=== PATIENT | male | born 1975 | race African-American/Black ===

== ENCOUNTER 2017-05-28 11:36 | Emergency (ER) | payer SELFPAY ==
[~2017-05-28] VITALS: Ht 172.7 cm; Wt 120.0 kg
[~2017-05-28 11:36] MED LIST: CIPR500T4 PO; DIFL150T PO
[2017-05-28 11:38] VITALS: BP 156/86; PULSE 73; RESP 15; TEMP 98.4; O2SAT 98
--- NOTE | 2017-05-28 11:53 | PD ---
Physical Exam Time Seen by Provider: 11:52 Narrative 42 y/o male with a rash on the L foot for one week. Vital signs reviewed. Seen at triage desk. Awaiting bed placement. Data Data Last Documented VS Vital Signs Date Time Temp Pulse Resp B/P Pulse Ox O2 Delivery O2 Flow Rate FiO2 05/28/17 11:38 98.4 73 15 156/86 98 MDM Medical Record Reviewed: Yes Supervised Visit with MICHAEL: No Juanito Carson May 28, 2017 11:53
--- NOTE | 2017-05-28 13:00 | PD ---
HPI Chief Complaint: Skin Problem Time Seen by Provider: 12:58 Travel History International Travel<30 days: No Contact w/Intl Traveler<30days: No Traveled to known affect area: No History of Present Illness HPI 42-year-old male presents to emergency Department with complaint of a rash to his left foot times one week. 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 Said it started out about a week ago and it was really itchy. That he's been scratching it and over the past few days it is draining a lot of drainage, is red, and hot. Reports it is painful. Denies fever, vomiting. Reports numbness and tingling in his foot, but denies loss of sensation. Denies decreased range of motion or decreased strength to the affected extremity. Has been trying [id number] topical ointments for symptom management. Symptoms are moderate in severity. Reports having similar symptoms to his foot a few years ago and being admitted to the hospital for those symptoms at that time. Up-to-date on his tetanus vaccination. No known allergies. Has no other medical complaints. No other modifying factors or associated signs and symptoms. PFSH Past Medical History Medical History: Denies Significant Hx Cancer: No Cardiovascular Problems: No Diminished Hearing: No Endocrine: No Gout: Yes Genitourinary: No Immune Disorder: No Implanted Vascular Access Dvce: No Musculoskeletal: No Neurologic: No Psychiatric: No Reproductive: No Respiratory: Yes ?: Not Past Surgical History Surgical History: No Previous Surgery Social History Alcohol Use: Yes (BE[employer] OCCASIONALLY) Tobacco Use: Yes (1/2 PPD) Substance Use: Yes (MARIJUANA OCCASIONALLY) Allergies-Medications (Allergen,Severity, Reaction): Coded Allergies: No Known Allergies (Verified , 05/28/17) Reported Meds & Prescriptions Reported Meds & Active Scripts Active Ibuprofen 800 Mg Tab 800 Mg PO Q6HR PRN Diflucan (Fluconazole) 150 Mg Tab 150 Mg PO ONCE Nystatin Topical (Nystatin) 1 Powd 1 Appl TOPICAL DIRECTED Keflex (Cephalexin) 500 Mg Cap 500 Mg PO Q6H 10 Days Bactrim DS (Sulfamethoxazole-Trimethoprim) 800-160 Mg Tab 1 Tab PO BID 10 Days Diflucan 150 mg (Fluconazole) 150 Mg Tab 150 Mg PO DAILY Cipro (Ciprofloxacin HCl) 500 Mg Tab 500 Mg PO BID Review of Systems Except as stated in HPI: all other systems reviewed are Neg Physical Exam Narrative GENERAL: Well-nourished, well-developed male patient, in no acute distress; afebrile, nontoxic-appearing SKIN: Warm and dry. Dorsal aspect of left foot with moist erythemic rash consistent with fungal infection that is with warmth to touch, edematous, and with drainage. Left lower extremity supple and non-tense with 2+ pedal pulse and sensory intact. No lymphangitis. HEAD: Atraumatic. Normocephalic. EYES: Pupils equal and round. No scleral icterus. No injection or drainage. ENT: Mucosa pink and moist. Airway patent. NECK: Trachea midline. CARDIOVASCULAR: Regular rate. RESPIRATORY: No accessory muscle use. GASTROINTESTINAL: Flat. MUSCULOSKELETAL: No obvious deformities. No clubbing. No cyanosis. No edema. NEUROLOGICAL: Awake and alert. Oriented 3. No obvious cranial nerve deficits. Motor grossly within normal limits. Normal speech. PSYCHIATRIC: Appropriate mood and affect; insight and judgment normal. Data Data Last Documented VS Vital Signs Date Time Temp Pulse Resp B/P Pulse Ox O2 Delivery O2 Flow Rate FiO2 05/28/17 11:38 98.4 73 15 156/86 98 Orders Foot, Complete ([id number]) (05/28/17 12:51) MDM Medical Decision Making Medical Screen Exam Complete: Yes Emergency Medical Condition: Yes Medical Record Reviewed: Yes Differential Diagnosis Athlete's foot, cellulitis of foot, abscess of foot, osteomyelitis Narrative Course 42-year-old male with cellulitis and athlete's foot of his left foot. Patient is afebrile and nontoxic-appearing. He denies fever, vomiting. Patient was hospitalized and treated for similar symptoms back in 2013. 1354: Left foot x-ray concludes no acute findings. I spoke with Dr. Nam, my attending physician, and she agrees the patient is stable for outpatient treatment and follow-up. Keflex, Bactrim, nystatin powder prescribed for home. Discussed care of the foot with the patient and he verbalized understanding and agreement. Instructed patient to follow up with primary care provider. Patient verbalizes understanding and agreement with treatment plan. Patient is medically cleared and stable for discharge. Discussed reasons to return to the emergency department. Patient agrees with treatment plan. The patients vital signs are stable and the patient is stable for outpatient follow-up and treatment. Patient discharged home, stable and in no acute distress. Diagnosis Primary Impression: Athletes foot Qualified Code: B35.3 - Tinea pedis of left foot Additional Impression: Cellulitis of foot, left Referrals: [facility] Primary Care Physician Patient Instructions: Cellulitis (ED), General Instructions, Tinea Pedis (ED) Departure Forms: Tests/Procedures, Work Release Enter return to work date: Jun 01, 2017 Additional Instructions: Antibiotics as prescribed Topical nystatin powder as prescribed Diflucan as prescribed Ibuprofen or Tylenol as directed and as needed for pain and inflammation Keep foot clean and dry A few work he needed to take multiple changes of socks and change your socks frequently to keep your foot clean and dry Follow-up with primary care provider Return to the emergency department immediately with worsening of symptoms Med/Other Pt SpecificInfo: Prescription(s) given Scripts Ibuprofen 800 Mg [id number] Mg PO Q6HR PRN (PAIN) #30 TAB Ref 0 Prov:Esther Mustafa 05/28/17 Fluconazole (Diflucan)150 Mg [id number] Mg PO ONCE #5 TAB Ref 0 Prov:Esther Mustafa 05/28/17 Nystatin Topical 1 Powd1 Appl TOPICAL DIRECTED #1 CONTAINER Prov:Esther Mustafa 05/28/17 Cephalexin (Keflex)500 Mg [id number] Mg PO Q6H 10 Days Ref 0 Prov:Esther Mustafa 05/28/17 Sulfamethoxazole-Trimethoprim (Bactrim DS)800-160 Mg Tab1 Tab PO BID 10 Days Ref 0 Prov:Esther Mustafa 05/28/17 Disposition: 01 DISCHARGE HOME Condition: Stable Esther Mustafa May 28, 2017 13:00
--- NOTE | 2017-05-28 13:33 | RADRPT ---
EXAM DATE/TIME: 05/28/2017 13:12 [facility] COMPARISON: No previous studies available for comparison. INDICATIONS : Left foot "weeping" no apparent trauma. MEDICAL HISTORY : None. SURGICAL HISTORY : None. ENCOUNTER: Initial ACUITY: 1 week PAIN SCORE: 6/10 LOCATION: Left foot anteriorly FINDINGS: Three view examination of the left foot demonstrates no soft tissue swelling, dislocation, or fractur e. The tarsal bones appear intact. The interphalangeal and metatarsophalangeal joints are intact. The calcaneus is intact. Bony mineralization is normal. CONCLUSION: Unremarkable examination of the left foot. Thang Sanabria MD on May 28, 2017 at 13:31 Board Certified Radiologist. This report was verified electronically.
[2017-05-28] MEDS ORDERED: BACT800T5 PO (14:08)
[2017-05-28] MEDS ORDERED: NYSTPOW TOPICAL (14:08)
[2017-05-28] MEDS ORDERED: DIFL150T PO (14:08)
[2017-05-28] MEDS ORDERED: CEPH-460 PO (14:08)
[2017-05-28] MEDS ORDERED: IBUP800T23 PO (14:11)
== END 2017-05-28 14:34 | disposition home or self-care (01) ==
LOC: NEPK 11:36
DX: B35.3 Tinea pedis (principal); L03.116 Cellulitis of left lower limb; F10.10 Alcohol abuse, uncomplicated; F17.290 Nicotine dependence, other tobacco product, uncomplicated; F12.10 Cannabis abuse, uncomplicated
CPT/HCPCS: 73630; 99284

== ENCOUNTER 2017-06-03 08:40 | Emergency (ER) | payer SELFPAY ==
[~2017-06-03] VITALS: Ht 172.7 cm; Wt 67.0 kg
[~2017-06-03 08:40] MED LIST changes: +BACT800T5 PO; +CEPH-460 PO; +IBUP800T23 PO; +NYSTPOW TOPICAL
[2017-06-03 08:41] VITALS: BP 139/78; PULSE 62; RESP 16; TEMP 97.4; O2SAT 100
[2017-06-03] MEDS ORDERED: NYSTPOW TOPICAL (11:18)
[2017-06-03] MEDS ORDERED: LOTR15T TOPICAL (11:25)
--- NOTE | 2017-06-03 11:25 | PD ---
HPI Chief Complaint: Skin Problem Time Seen by Provider: 09:50 Travel History International Travel<30 days: No Contact w/Intl Traveler<30days: No Traveled to known affect area: No History of Present Illness HPI This patient was seen here 3 days ago for rash in his feet. He filled the antibiotics and started taking him. He reports that he's had improvement in his feet look improved but he wanted to get a recheck. He did not fill the nystatin prescription. He seems to have lasted. 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 Severity is moderate PFSH Past Medical History Cancer: No Cardiovascular Problems: No Diminished Hearing: No Endocrine: No Gout: Yes Genitourinary: No Immune Disorder: No Implanted Vascular Access Dvce: No Musculoskeletal: No Neurologic: No Psychiatric: No Reproductive: No Respiratory: Yes Past Surgical History Surgical History: No Previous Surgery Social History Alcohol Use: Yes (daily) Tobacco Use: Yes (1/2 PPD) Substance Use: Yes (MARIJUANA OCCASIONALLY) Allergies-Medications (Allergen,Severity, Reaction): Coded Allergies: No Known Allergies (Verified , 05/28/17) Reported Meds & Prescriptions Reported Meds & Active Scripts Active Nystatin Topical (Nystatin) 1 Powd 1 Appl TOPICAL DIRECTED Ibuprofen 800 Mg Tab 800 Mg PO Q6HR PRN Diflucan (Fluconazole) 150 Mg Tab 150 Mg PO ONCE Keflex (Cephalexin) 500 Mg Cap 500 Mg PO Q6H 10 Days Bactrim DS (Sulfamethoxazole-Trimethoprim) 800-160 Mg Tab 1 Tab PO BID 10 Days Diflucan 150 mg (Fluconazole) 150 Mg Tab 150 Mg PO DAILY Cipro (Ciprofloxacin HCl) 500 Mg Tab 500 Mg PO BID Review of Systems General / Constitutional: No: Fever HENT: No: Headaches Cardiovascular: No: Chest Pain or Discomfort Physical Exam Narrative NECK: Symmetrical appearance, midline trachea. No mass or crepitus. Thyroid without enlargement, tenderness, or mass. GASTROINTESTINAL: Abdomen soft, non-tender, nondistended. Positive bowel sounds. No hepato-splenomegaly, or palpable masses. No guarding. Examination of the feet reveals he's got a scaly rash on the top of his feet. There is no evidence of cellulitis He also has a eczematous rash on the fingers of both hands. Data Data Last Documented VS Vital Signs Date Time Temp Pulse Resp B/P Pulse Ox O2 Delivery O2 Flow Rate FiO2 06/03/17 08:41 97.4 62 16 139/78 100 Room Air MDM Medical Decision Making Medical Screen Exam Complete: Yes Emergency Medical Condition: Yes Medical Record Reviewed: Yes Differential Diagnosis Eczema, dermatitis, fungal rash Narrative Course I have reviewed the patient's electronic medical record. Patient's hand rash looks like a eczematous hand dermatitis that would be steroid responsive and he is instructed to keep his hands clean and dry as possible I have decided to write some Lotrisone given that there may be fungal involvement especially on the feet Follow-up with primary care or dermatology recommended Diagnosis Primary Impression: Dermatitis Med/Other Pt SpecificInfo: Prescription(s) given Scripts Betamethasone-Clotrimazole Topical (Lotrisone Topical)1-0.05% Cream1 Applic TOPICAL BID #45 GM Ref 0 Prov:Sravan Licona MD 06/03/17 Nystatin Topical 1 Powd1 Appl TOPICAL DIRECTED #1 CONTAINER Prov:Sravan Licona MD 06/03/17 Disposition: 01 DISCHARGE HOME Condition: Stable Sravan Licona MD Jun 03, 2017 11:25
== END 2017-06-03 11:45 | disposition home or self-care (01) ==
LOC: NEPD 08:40
DX: L30.9 Dermatitis, unspecified (principal); F17.200 Nicotine dependence, unspecified, uncomplicated; Z87.39 Personal history of other diseases of the musculoskeletal system and connective tissue; Z87.09 Personal history of other diseases of the respiratory system
CPT/HCPCS: 99284

== ENCOUNTER 2017-07-25 14:47 | Emergency (ER) | payer SELFPAY ==
[~2017-07-25] VITALS: Ht 172.7 cm; Wt 75.0 kg
[~2017-07-25 14:47] MED LIST changes: +LOTR15T TOPICAL
[2017-07-25 14:50] VITALS: BP 152/79; PULSE 78; RESP 20; TEMP 98.4; O2SAT 100
[2017-07-25] MEDS ORDERED: LAMI1GEL TOPICAL (15:47)
--- NOTE | 2017-07-25 15:47 | PD ---
HPI Chief Complaint: Skin Problem Time Seen by Provider: 15:21 Travel History International Travel<30 days: No Contact w/Intl Traveler<30days: No Traveled to known affect area: No History of Present Illness HPI This is a 42-year-old male who presents to the emergency department with a rash and skin breakdown on both of his feet, constant, severe going on for several weeks. The patient has a history of athlete's foot and he feels like this is similar to when he had it a couple months ago. He said he used cream and it got better but he's run out of cream and since then has gotten worse. He denies any fevers or chills. He is to follow-up with Dr. Bell's clinic but now is closed and he doesn't have any outpatient follow-up. [facility] Past Medical History Cancer: No Cardiovascular Problems: No Diminished Hearing: No Endocrine: No Gout: Yes Genitourinary: No Immune Disorder: No Implanted Vascular Access Dvce: No Musculoskeletal: No Neurologic: No Psychiatric: No Reproductive: No Respiratory: Yes Tetanus Vaccination: Unknown Influenza Vaccination: No Past Surgical History Surgical History: No Previous Surgery Other Surgery: No Social History Alcohol Use: Yes (daily) Tobacco Use: Yes (1/2 PPD) Substance Use: Yes (MARIJUANA OCCASIONALLY) Allergies-Medications (Allergen,Severity, Reaction): Coded Allergies: No Known Allergies (Verified , 07/25/17) Reported Meds & Prescriptions Reported Meds & Active Scripts Active No Active Prescriptions or Reported Medications Review of Systems Except as stated in HPI: all other systems reviewed are Neg Physical Exam Narrative GENERAL:Well appearing, no acute distress SKIN: Dry and cracked skin involving the distal feet with some white discharge between the toes and some erythema along the dorsal aspect of the feet adjacent to the skin breakdown HEAD: Atraumatic. Normocephalic. EYES: Pupils equal and round. No injection or drainage. ENT: Moist mucous membranes NECK: Trachea midline. CARDIOVASCULAR: Regular rate and rhythm. No murmur appreciated. RESPIRATORY: Clear to auscultation. Breath sounds equal bilaterally. GASTROINTESTINAL: Abdomen soft, non-tender, nondistended. MUSCULOSKELETAL: No obvious deformities. NEUROLOGICAL: Awake and alert. No obvious cranial nerve deficits. Moving all extremities. PSYCHIATRIC: Appropriate mood and affect; insight and judgment normal. Data Data Last Documented VS Vital Signs Date Time Temp Pulse Resp B/P (MAP) Pulse Ox O2 Delivery O2 Flow Rate FiO2 07/25/17 15:16 18 07/25/17 14:50 98.4 78 152/79 (103) 100 MDM Medical Decision Making Medical Screen Exam Complete: Yes Emergency Medical Condition: Yes Differential Diagnosis Athlete's foot, cellulitis, sepsis Narrative Course This is a patient who has a history of athlete's foot. He was consulted on by Dr. Bae in the past when he had a superimposed infection. I think patient would benefit from a topical antifungal. He was given a referral to his [facility] and I urged him to follow up as an outpatient to have a recheck as this is quite severe. I don't suspect a superimposed bacterial infection at this time and I think he can be discharged home with outpatient therapy. Diagnosis Primary Impression: Tinea pedis Qualified Codes: B35.3 - Tinea pedis Patient Instructions: General Instructions Additional Instructions: If you develop fever, increasing redness, warmth, or spreading of your infection , or severe pain return to the emergency department immediately as you may require antibiotics through your IV. Med/Other Pt SpecificInfo: Prescription(s) given Scripts Terbinafine Topical (Lamisil Advanced Topical) 1 % Gel 1 APPLIC TOPICAL BID for Manage Fungal Infection for 28 Days, GM 0 Refills Prov: Mai Davis MD 07/25/17 Disposition: 01 DISCHARGE HOME Condition: Stable Mai Davis MD Jul 25, 2017 15:47
[2017-07-25 16:08] VITALS: BP 129/84
== END 2017-07-25 16:09 | disposition home or self-care (01) ==
LOC: NEPD 14:47
DX: B35.3 Tinea pedis (principal); M10.9 Gout, unspecified; Z72.0 Tobacco use
CPT/HCPCS: 99283